=== PATIENT | female | born 1985 | race Caucasian/White ===

== ENCOUNTER 2022-09-13 12:22 | Emergency (ER) | payer MEDICAID ==
[~2022-09-13] VITALS: Ht 162.6 cm; Wt 70.0 kg
[2022-09-13] MEDS ORDERED: PANTOPRAZOLE 40 MG/10 ML VIAL INJ IV ONE (12:45)
[2022-09-13] MEDS ORDERED: SODIUM CHLORIDE 0.9% 1,000 ML IVB ONE (12:45)
[2022-09-13] MEDS ORDERED: MORPHINE SULFATE 4 MG/ML SYR/VIAL IV ONE (12:45)
[2022-09-13] MEDS ORDERED: ONDANSETRON HCL 4 MG/2 ML VIAL IV ONE (12:45)
[2022-09-13 13:39] LABS: Basophils # (auto) 0 10 ^3/uL (0-0.2); Basophils % (auto) 0.3 % (0.0-2.0); Eosinophils # (auto) 0.1 10 ^3/uL (0-0.8); Hemoglobin 11.6 g/dL (12.2-16.2); Monocytes # (auto) 0.4 10 ^3/uL (0-1.3); Nucleated Red Blood Cells % 0.1 %
[2022-09-13 13:40] LABS: Eosinophils % (auto) 0.8 % (0.0-7.0); Hematocrit 35.9 % (36.0-46.0); Lymphocytes # (auto) 2.4 10 ^3/uL (0.4-5.4); Lymphocytes % (auto) 26.9 % (10.0-50.0); Mean Corpuscular Hemoglobin 25.3 pg (28.0-32.0); Mean Corpuscular Hgb Conc. 32.2 g/dL (32.0-36.0); Mean Corpuscular Volume 78.5 fL (80.0-100.0); Monocytes % (auto) 4.2 % (0.0-12.0); Neutrophils % (auto) 67.8 % (37.0-80.0); Red Blood Cells 4.58 10^6/uL (4.0-5.20); Red Cell Distribution Width 16.3 % (11.8-14.3); White Blood Cell 8.8 10^3/uL (4.4-10.8)
[2022-09-13] MEDS ORDERED: KETOROLAC TROMETH 30 MG/ML 1ML VIAL IV ONE (14:00)
[2022-09-13 14:15] LABS: Potassium 3.6 mmol/L (3.5-5.1)
[2022-09-13 14:31] VITALS: BP 122/76
[2022-09-13 14:33] LABS: Albumin 3.7 g/dL (3.4-5.0); BUN/Creatinine Ratio 6.5 (10.0-20.0); Bilirubin, Total 0.7 mg/dL (0.2-1.0); Calcium 8.2 mg/dL (8.5-10.1); Magnesium 1.9 mg/dL (1.6-2.6); Total Protein 7.1 g/dL (6.4-8.2)
[2022-09-13] MEDS ORDERED: TRAM50TA2 PO (16:43)
[2022-09-13] MEDS ORDERED: ONDA-144 PO (16:43)
== END 2022-09-13 16:55 | disposition home or self-care (01) ==
LOC: ER 12:22 → EDBD 12:22 → ER 16:55
DX: R10.84 Generalized abdominal pain (principal); R10.2 Pelvic and perineal pain; F32.9 Major depressive disorder, single episode, unspecified
CPT/HCPCS: 36415; 74176; 80053; 83690; 83735; 84702; 85025; 96361; 96374; 96375; 99285; C9113; J1885; J2270; J2405; J7030

== ENCOUNTER 2022-09-15 23:24 | Inpatient (IN) | payer BC, MEDICAID ==
[~2022-09-15] VITALS: Ht 162.6 cm; Wt 75.0 kg
[~2022-09-15 23:24] MED LIST: ONDA-144 PO; TRAM50TA2 PO
[2022-09-15 23:57] LABS: Basophils # (auto) 0.1 10 ^3/uL (0-0.2); Eosinophils # (auto) 0.2 10 ^3/uL (0-0.8)
[2022-09-15 23:59] LABS: Hematocrit 40.3 % (36.0-46.0); Lymphocytes # (auto) 3.5 10 ^3/uL (0.4-5.4); Lymphocytes % (auto) 30.9 % (10.0-50.0); Mean Corpuscular Hemoglobin 25.6 pg (28.0-32.0); Mean Corpuscular Hgb Conc. 32.3 g/dL (32.0-36.0); Mean Corpuscular Volume 79.3 fL (80.0-100.0); Monocytes # (auto) 0.5 10 ^3/uL (0-1.3); Monocytes % (auto) 4.8 % (0.0-12.0); Neutrophils # (auto) 6.9 10 ^3/uL (1.6-8.6); Neutrophils % (auto) 61.3 % (37.0-80.0); Red Blood Cells 5.09 10^6/uL (4.0-5.20); Red Cell Distribution Width 16.2 % (11.8-14.3); White Blood Cell 11.2 10^3/uL (4.4-10.8)
[2022-09-16 00:14] LABS: Albumin 3.7 g/dL (3.4-5.0); BUN/Creatinine Ratio 7.6 (10.0-20.0); Calcium 9.3 mg/dL (8.5-10.1); Potassium 3.9 mmol/L (3.5-5.1)
[2022-09-16 00:17] LABS: Bilirubin, Total 0.8 mg/dL (0.2-1.0); Total Protein 7.8 g/dL (6.4-8.2)
[2022-09-16] MEDS ORDERED: HYDROmorphone HCL 2 MG/ML VL/or syr IV ONE ×4 (02:00→07:30)
[2022-09-16] MEDS ORDERED: ONDANSETRON HCL 4 MG/2 ML VIAL IV ONE ×3 (03:30→07:30)
[2022-09-16] MEDS ORDERED: SODIUM CHLORIDE 0.9% 1,000 ML IV ONE ×2 (03:30)
[2022-09-16] MEDS ORDERED: FAMOTIDINE (10MG/ML) 2ML VL IV ONE (03:30)
[2022-09-16 04:57] LABS: Urine Bacteria NONE SEEN /hpf (None Seen); Urine Blood 3+ /uL (Negative); Urine WBC 2 /hpf (0 - 5)
[2022-09-16 04:58] LABS: Urine Specific Gravity > 1.050 (1.001-1.035)
[2022-09-16] MEDS ORDERED: NITROGLYCERIN 0.4 MG SL TAB SL PRN (10:30)
[2022-09-16] MEDS ORDERED: MORPHINE SULFATE INJ 2 MG/ml SYRG IV PRN ×2 (10:30)
[2022-09-16] MEDS ORDERED: ACETAMINOPHEN 325 MG TAB PO PRN (10:30)
[2022-09-16] MEDS ORDERED: IPRATROPIUM BROM 0.5 MG/2.5ML INH SOL NEB PRN (10:45)
[2022-09-16] MEDS ORDERED: ALBUTEROL SULF 2.5 MG/0.5ML(0.5%) NEB SOLN NEB PRN (10:45)
[2022-09-16 11:18] VITALS: BP 135/60
[2022-09-16] MEDS: cefTRIAXone 1GM/50ML D5W 50 ML IV SCH (11:19)
[2022-09-16] MEDS: HYDROcodone-ACET 5/325MG TAB PO PRN ×2 (11:19→16:35)
[2022-09-16 16:36] VITALS: BP_SYST 113; BP_SYST 130; BP_DIAS 60; BP_DIAS 75
[2022-09-16 17:00] VITALS: BP 142/93
[2022-09-16] MEDS: ONDANSETRON HCL 4 MG/2 ML VIAL IV PRN (18:10)
[2022-09-16 20:00] VITALS: BP 106/60
[2022-09-16] MEDS: KETOROLAC TROMETH 30 MG/ML 1ML VIAL IV PRN (20:08)
[2022-09-16 21:02] LABS: Alcohol, Urine < 3.0 mg/dL (0-10); Amphetamine Screen, Urine NEGATIVE (NEGATIVE); Barbiturate Scree,Urine NEGATIVE (NEGATIVE); Benzodiazephine Screen, Urine NEGATIVE (NEGATIVE); Cannabinoid Screen, Urine POSITIVE (NEGATIVE); Cocaine Screen, Urine NEGATIVE (NEGATIVE); Opiate Scree,Urine NEGATIVE (NEGATIVE); Phencyclidine Screen, Urine NEGATIVE (NEGATIVE)
[2022-09-16 22:00] VITALS: BP 106/60
[2022-09-17 05:00] VITALS: BP 112/73
[2022-09-17] MEDS: KETOROLAC TROMETH 30 MG/ML 1ML VIAL IV PRN ×3 (05:00→18:30)
[2022-09-17 05:51] LABS: Basophils # (auto) 0 10 ^3/uL (0-0.2); Basophils % (auto) 0.4 % (0.0-2.0); Eosinophils # (auto) 0.2 10 ^3/uL (0-0.8); Hematocrit 32.7 % (36.0-46.0); Hemoglobin 10.6 g/dL (12.2-16.2); Lymphocytes # (auto) 1.7 10 ^3/uL (0.4-5.4); Lymphocytes % (auto) 22.4 % (10.0-50.0); Mean Corpuscular Hgb Conc. 32.5 g/dL (32.0-36.0); Mean Corpuscular Volume 80.1 fL (80.0-100.0); Monocytes # (auto) 0.4 10 ^3/uL (0-1.3); Monocytes % (auto) 4.8 % (0.0-12.0); Neutrophils # (auto) 5.4 10 ^3/uL (1.6-8.6); Neutrophils % (auto) 70.4 % (37.0-80.0); Nucleated Red Blood Cells % 0.1 %; Red Blood Cells 4.09 10^6/uL (4.0-5.20); Red Cell Distribution Width 16.1 % (11.8-14.3); White Blood Cell 7.7 10^3/uL (4.4-10.8)
[2022-09-17 06:02] LABS: Potassium 3.9 mmol/L (3.5-5.1)
[2022-09-17 06:10] LABS: Albumin 3.1 g/dL (3.4-5.0); BUN/Creatinine Ratio 9.8 (10.0-20.0); Calcium 8.2 mg/dL (8.5-10.1); Total Protein 6.3 g/dL (6.4-8.2)
[2022-09-17 09:00] VITALS: BP 122/76
[2022-09-17] MEDS: cefTRIAXone 1GM/50ML D5W 50 ML IV SCH (09:38)
[2022-09-17] MEDS ORDERED: PANTOPRAZOLE 40 MG/10 ML VIAL INJ IV SCH (10:00)
[2022-09-17] MEDS: ONDANSETRON HCL 4 MG/2 ML VIAL IV PRN (12:32)
[2022-09-17 12:52] VITALS: BP 125/68
[2022-09-17] MEDS: HYDROcodone-ACET 5/325MG TAB PO PRN ×2 (15:00→21:50)
[2022-09-17 18:00] VITALS: BP 120/75
[2022-09-17] MEDS: PANTOPRAZOLE 40 MG TAB PO SCH (21:41)
[2022-09-17 21:57] VITALS: BP 125/79
[2022-09-18 05:00] VITALS: BP 111/72
[2022-09-18] MEDS: KETOROLAC TROMETH 30 MG/ML 1ML VIAL IV PRN ×3 (06:17→19:39)
[2022-09-18 06:43] LABS: Calcium 8.3 mg/dL (8.5-10.1); Potassium 3.9 mmol/L (3.5-5.1)
[2022-09-18 06:48] LABS: BUN/Creatinine Ratio 12.1 (10.0-20.0); Bilirubin, Total 0.7 mg/dL (0.2-1.0)
[2022-09-18 08:30] VITALS: BP 123/79
[2022-09-18 08:52] VITALS: BP 123/79
[2022-09-18] MEDS: cefTRIAXone 1GM/50ML D5W 50 ML IV SCH (09:05)
[2022-09-18] MEDS: PANTOPRAZOLE 40 MG TAB PO SCH ×2 (09:05→21:04)
[2022-09-18 12:36] VITALS: BP 129/75
[2022-09-18 16:36] VITALS: BP 132/82
[2022-09-18 22:00] VITALS: BP 119/71
[2022-09-19 05:00] VITALS: BP 121/82
[2022-09-19] MEDS ORDERED: diphenhdrAMINE HCL 50 MG/1 ML VL ONE (07:35)
[2022-09-19] MEDS ORDERED: fentaNYL CITRATE 100 MCG/2 ML VL ONE (07:35)
[2022-09-19] MEDS ORDERED: MIDAZOLAM HCL 5 MG/ML-1ML VIAL ONE (07:35)
[2022-09-19 09:09] VITALS: BP 152/97
[2022-09-19] MEDS ORDERED: MIDAZOLAM HCL 5 MG/ML-1ML VIAL IV ONE ×3 (09:52→09:58)
[2022-09-19] MEDS ORDERED: fentaNYL CITRATE 100 MCG/2 ML VL IV ONE ×2 (09:52→09:55)
[2022-09-19] MEDS ORDERED: diphenhdrAMINE HCL 50 MG/1 ML VL IV ONE (09:52)
[2022-09-19] MEDS: cefTRIAXone 1GM/50ML D5W 50 ML IV SCH (11:37)
[2022-09-19] MEDS: SUCRALFATE 1 GM/10 ML ORAL SUSP PO SCH ×3 (11:48→21:39)
[2022-09-19] MEDS: PANTOPRAZOLE 40 MG TAB PO SCH ×2 (11:48→21:39)
[2022-09-19 11:50] LABS: INR 0.97 (0.9-1.15); Partial Thromboplastin Time 25.4 sec (24.6-33.4)
[2022-09-19 12:22] VITALS: BP 139/85
[2022-09-19 14:18] LABS: Hepatitis A Ab IgM Negative; Hepatitis B Core IgM Negative
[2022-09-19 14:19] LABS: Hepatitis C Antibody Negative (Negative)
[2022-09-19 16:37] VITALS: BP 157/107
[2022-09-19] MEDS: KETOROLAC TROMETH 30 MG/ML 1ML VIAL IV PRN (21:01)
[2022-09-19 22:00] VITALS: BP 132/92
[2022-09-20 05:00] VITALS: BP 127/93
[2022-09-20] MEDS: SUCRALFATE 1 GM/10 ML ORAL SUSP PO SCH ×3 (05:48→21:12)
[2022-09-20 08:00] VITALS: BP 138/88
[2022-09-20] MEDS: cefTRIAXone 1GM/50ML D5W 50 ML IV SCH (09:45)
[2022-09-20] MEDS: PANTOPRAZOLE 40 MG TAB PO SCH ×2 (10:00→21:12)
[2022-09-20] MEDS ORDERED: DexAMETHasone SOD PHOS 10MG/1ML VIAL INJ ONE (10:04)
[2022-09-20] MEDS ORDERED: fentaNYL CITRATE 100 MCG/2 ML VL ONE (10:04)
[2022-09-20] MEDS ORDERED: ONDANSETRON HCL 4 MG/2 ML VIAL ONE ×2 (10:04→12:52)
[2022-09-20] MEDS ORDERED: ROCURONIUM 10MG/ML 10ML VIAL IV ONE (10:04)
[2022-09-20] MEDS ORDERED: SODIUM CHLORIDE LOCK 10 ML ONE (10:04)
[2022-09-20] MEDS ORDERED: NEOSTIGMINE 1 MG/ML INJ (10mg/10ML VIAL) ONE (10:04)
[2022-09-20] MEDS ORDERED: MIDAZOLAM HCL 2MG/2ML 2ml VIAL (1mg/ml) ONE (10:04)
[2022-09-20] MEDS ORDERED: PROPOFOL 10 MG/ML 20 ML IV ONE (10:04)
[2022-09-20] MEDS ORDERED: GLYCOPYRROLATE 0.2 MG/ML 1ML VIAL ONE (10:04)
[2022-09-20] MEDS ORDERED: MEPERIDINE HCL (50 MG/ML) 1 ML VIAL ONE (10:04)
[2022-09-20] MEDS ORDERED: LIDOCAINE W/ EPINEPHRINE 1% 20ML VIAL ONE (10:34)
[2022-09-20] MEDS: POVIDONE IODINE 10 % TOPICAL OINT 30GM TOP ONE ×2 (10:34→11:51)
[2022-09-20] MEDS ORDERED: BUPIVACAINE 0.25% INJ 50ML VIAL ONE (10:35)
[2022-09-20] MEDS ORDERED: MORPHINE SULFATE INJ 2 MG/ml SYRG IV PRN (10:45)
[2022-09-20] MEDS ORDERED: HYDROmorphone HCL 2 MG/ML VL/or syr IV PRN ×2 (10:45)
[2022-09-20] MEDS ORDERED: METOCLOPRAMIDE HCL 5MG/ml INJ 2ml VIAL IV PRN (10:45)
[2022-09-20] MEDS ORDERED: MEPERIDINE HCL (25 MG/ML) 1ML VIAL ONE (12:35)
[2022-09-20] MEDS: D5W/SOD CHL 0.45%/KCL 20MEQ 1,000 ML IV SCH ×2 (12:45→21:05)
[2022-09-20] MEDS ORDERED: HYDROmorphone HCL 2 MG/ML VL/or syr ONE (13:34)
[2022-09-20 16:00] VITALS: BP 122/84
[2022-09-20] MEDS: KETOROLAC TROMETH 30 MG/ML 1ML VIAL IV PRN (21:19)
[2022-09-20 22:00] VITALS: BP 111/69
[2022-09-21] MEDS: D5W/SOD CHL 0.45%/KCL 20MEQ 1,000 ML IV SCH ×2 (04:25→13:45)
[2022-09-21 05:00] VITALS: BP 107/62
[2022-09-21 06:11] LABS: Basophils # (auto) 0 10 ^3/uL (0-0.2); Basophils % (auto) 0.3 % (0.0-2.0); Eosinophils # (auto) 0 10 ^3/uL (0-0.8); Eosinophils % (auto) 0.2 % (0.0-7.0); Hemoglobin 10.9 g/dL (12.2-16.2); Lymphocytes # (auto) 1.6 10 ^3/uL (0.4-5.4); Lymphocytes % (auto) 15.1 % (10.0-50.0); Mean Corpuscular Hemoglobin 25.8 pg (28.0-32.0); Mean Corpuscular Hgb Conc. 32.1 g/dL (32.0-36.0); Mean Corpuscular Volume 80.4 fL (80.0-100.0); Monocytes # (auto) 0.5 10 ^3/uL (0-1.3); Monocytes % (auto) 4.4 % (0.0-12.0); Neutrophils # (auto) 8.3 10 ^3/uL (1.6-8.6); Red Blood Cells 4.23 10^6/uL (4.0-5.20); Red Cell Distribution Width 15.8 % (11.8-14.3); White Blood Cell 10.4 10^3/uL (4.4-10.8)
[2022-09-21] MEDS: SUCRALFATE 1 GM/10 ML ORAL SUSP PO SCH ×2 (06:29→09:27)
[2022-09-21] MEDS: HYDROcodone-ACET 5/325MG TAB PO PRN ×2 (06:31→12:40)
[2022-09-21 09:00] VITALS: BP 122/84
[2022-09-21] MEDS: cefTRIAXone 1GM/50ML D5W 50 ML IV SCH (09:26)
[2022-09-21] MEDS: PANTOPRAZOLE 40 MG TAB PO SCH (09:27)
[2022-09-21] MEDS ORDERED: PANT40T PO (12:44)
[2022-09-21 13:00] VITALS: BP 109/66
== END 2022-09-21 16:13 | disposition home or self-care (01) | DRG 417 ==
LOC: ER 23:24 → OVERFLOW 09-16 10:31 → WEST WING 09-16 16:06
PROVIDERS: ADMIT Nurse Practitioner Family; ATTEND Internal Medicine
PROC: 0DB98ZX Excision of Duodenum, Via Natural or Artificial Opening Endoscopic, Diagnostic (ICD-10-PCS; 2022-09-19)
PROC: 0DB68ZX Excision of Stomach, Via Natural or Artificial Opening Endoscopic, Diagnostic (ICD-10-PCS; 2022-09-19)
PROC: 0DB48ZX Excision of Esophagogastric Junction, Via Natural or Artificial Opening Endoscopic, Diagnostic (ICD-10-PCS; 2022-09-19)
PROC: 0FT44ZZ Resection of Gallbladder, Percutaneous Endoscopic Approach (ICD-10-PCS; principal; 2022-09-20 11:11)
DX: K80.10 Calculus of gallbladder with chronic cholecystitis without obstruction (principal); J96.01 Acute respiratory failure with hypoxia; K22.10 Ulcer of esophagus without bleeding; N10 Acute pyelonephritis; K29.70 Gastritis, unspecified, without bleeding; K29.80 Duodenitis without bleeding; K76.0 Fatty (change of) liver, not elsewhere classified; E66.9 Obesity, unspecified; K29.90 Gastroduodenitis, unspecified, without bleeding; K21.9 Gastro-esophageal reflux disease without esophagitis; J45.909 Unspecified asthma, uncomplicated; F41.9 Anxiety disorder, unspecified; F32.A Depression, unspecified; Z68.28 Body mass index [BMI] 28.0-28.9, adult
CPT/HCPCS: 36415; 43239; 71046; 74177; 76705; 78226; 80053; 80061; 80074; 80307; 81001; 82247; 83690; 84702; 85025; 85610; 85730; 86850; 86900; 86901; 87070; 87075; 87205; 96374; 96375; 96376; C9113; G0378; J0696; J1100; J1885; J2250; J2405; J2704; J3490